=== PATIENT | male | born 1965 | race Two or more races ===

== ENCOUNTER 2017-06-04 06:57 | Inpatient (IN) | payer MEDICAID ==
[~2017-06-04] VITALS: Ht 160 cm; Wt 68.0 kg
[2017-06-04 07:43] LABS: BASOPHIL % 0.6 % (0-2); PLATELET COUNT 393 x10^3mcL (130-400); RED CELL DISTRIBUTION WIDTH 13.5 % (11.5-14.5)
[2017-06-04 07:56] LABS: CALCIUM 8.3 mg/dL (8.5-10.1); CARBON DIOXIDE 28.3 mmol/L (21-32); CHLORIDE SERUM 103 mmol/L (98-107); CREATININE SERUM 0.7 mg/dL (0.7-1.3); GFR1 > 60 mL/min; GLUCOSE SERUM 94 mg/dL (74-106); SODIUM SERUM 137 mmol/L (136-145)
[2017-06-04 08:01] LABS: ALKALINE PHOSPHATASE 126 U/L (46-116); ALT/SGPT 67 U/L (16-63); BILIRUBIN TOTAL 0.85 mg/dL (0.20-1.00); TOTAL PROTEIN, SERUM 7.5 g/dL (6.4-8.2)
[2017-06-04 08:03] LABS: ALBUMIN 2.8 g/dL (3.4-5.0)
[2017-06-04 08:15] LABS: AST/SGOT 58 U/L (15-37)
[2017-06-04 09:40] LABS: MAGNESIUM 1.9 mg/dL (1.8-2.4); PHOSPHOROUS 3.4 mg/dL (2.5-4.9)
[2017-06-04 09:46] LABS: CHOLESTEROL/HDL RATIO 1.8
[2017-06-04 10:02] LABS: T3 TOTAL 1.25 ng/mL
[2017-06-04 10:06] LABS: FREE T4 1.22 ng/dL (0.76-1.46); FREE THYROXINE INDEX 3.3 ug/dL (1.4-4.5); T4(THYROXINE) 10.4 ug/dL (4.7-13.3)
[2017-06-04 11:54] VITALS: BP 137/94
[2017-06-04 12:19] LABS: microscopic required? NO
[2017-06-04 12:32] LABS: UA SPECIFIC GRAVITY 1.015 (1.005-1.035); urine erythrocyte NEGATIVE (NEGATIVE)
[2017-06-04 12:45] LABS: AMPHETAMINE QUAL UR POSITIVE (NEG <=1000)
[2017-06-04 13:03] VITALS: BP 129/81
[2017-06-04 16:38] VITALS: BP 110/65
[2017-06-04 21:24] VITALS: BP 118/86
[2017-06-05 07:12] LABS: BASOPHIL % 0.2 % (0-2); PLATELET COUNT 342 x10^3mcL (130-400); RED CELL DISTRIBUTION WIDTH 13.4 % (11.5-14.5)
[2017-06-05 10:33] LABS: CARBON DIOXIDE 29.1 mmol/L (21-32); CHLORIDE SERUM 104 mmol/L (98-107); CREATININE SERUM 0.8 mg/dL (0.7-1.3); GFR1 > 60 mL/min; GLUCOSE SERUM 83 mg/dL (74-106); MAGNESIUM 2.1 mg/dL (1.8-2.4); PHOSPHOROUS 3.8 mg/dL (2.5-4.9); POTASSIUM SERUM 3.9 mmol/L (3.5-5.1); SODIUM SERUM 138 mmol/L (136-145)
[2017-06-05 13:05] VITALS: BP 91/54
[2017-06-05 17:11] VITALS: BP 124/80; BP 91/54
[2017-06-05 21:50] VITALS: BP 105/62
[2017-06-06 05:29] VITALS: BP 120/69
[2017-06-06 07:58] LABS: CALCIUM 8.7 mg/dL (8.5-10.1); CARBON DIOXIDE 27.2 mmol/L (21-32); CHLORIDE SERUM 104 mmol/L (98-107); CREATININE SERUM 0.9 mg/dL (0.7-1.3); GFR1 > 60 mL/min; GLUCOSE SERUM 121 mg/dL (74-106); MAGNESIUM 2.1 mg/dL (1.8-2.4); PHOSPHOROUS 5.2 mg/dL (2.5-4.9); POTASSIUM SERUM 3.9 mmol/L (3.5-5.1); SODIUM SERUM 139 mmol/L (136-145)
[2017-06-06 09:01] LABS: RED CELL DISTRIBUTION WIDTH 13.5 % (11.5-14.5)
[2017-06-06 09:02] LABS: PLATELET COUNT 422 x10^3mcL (130-400)
[2017-06-06 14:59] VITALS: BP 120/73
[2017-06-07 06:07] LABS: BASOPHIL % 0.8 % (0-2); RED CELL DISTRIBUTION WIDTH 13.2 % (11.5-14.5)
[2017-06-07 06:29] LABS: CALCIUM 8.2 mg/dL (8.5-10.1); CARBON DIOXIDE 26.6 mmol/L (21-32); CHLORIDE SERUM 105 mmol/L (98-107); CREATININE SERUM 0.9 mg/dL (0.7-1.3); GFR1 > 60 mL/min; GLUCOSE SERUM 105 mg/dL (74-106); PHOSPHOROUS 4.3 mg/dL (2.5-4.9); POTASSIUM SERUM 4.2 mmol/L (3.5-5.1); SODIUM SERUM 138 mmol/L (136-145)
[2017-06-07 06:36] LABS: PLATELET COUNT 418 x10^3mcL (130-400)
== END 2017-06-07 09:10 | disposition left against medical advice (07) | DRG 383 ==
LOC: ED → DU 08:50 → MU 08:50 → DU 09:40 → MU 06-06 10:41
PROVIDERS: Emergency Medicine; Family Medicine Sports Medicine; Neuromusculoskeletal Medicine, Sports Medicine; ADMIT Family Medicine
PROC: 0J9F00Z Drainage of Left Upper Arm Subcutaneous Tissue and Fascia with Drainage Device, Open Approach (ICD-10-PCS; principal; 2017-06-06 13:00)
DX: L02.414 Cutaneous abscess of left upper limb (principal); E43 Unspecified severe protein-calorie malnutrition; G92 Toxic encephalopathy; K72.90 Hepatic failure, unspecified without coma; F33.1 Major depressive disorder, recurrent, moderate; F11.20 Opioid dependence, uncomplicated; E83.51 Hypocalcemia; G25.81 Restless legs syndrome; R74.0 Nonspecific elevation of levels of transaminase and lactic acid dehydrogenase [LDH]; D64.9 Anemia, unspecified; E83.39 Other disorders of phosphorus metabolism; Z59.0 Homelessness; Z98.84 Bariatric surgery status; Z68.26 Body mass index [BMI] 26.0-26.9, adult; F17.210 Nicotine dependence, cigarettes, uncomplicated; Z91.19 Patient's noncompliance with other medical treatment and regimen
CPT/HCPCS: 83880; 84439; G0480; J1200; J1630; J1885; J2001; J2060; J2175; J2270; J2405; J2543; J3010; J3490; J7030; Q0092

== ENCOUNTER 2018-08-03 11:02 | Emergency (ER) | payer MEDICAID ==
[~2018-08-03] VITALS: Ht 162.6 cm; Wt 69.4 kg
[2018-08-03 11:16] VITALS: Ht 162.6 cm; Wt 69.4 kg
[2018-08-03 11:53] LABS: BASOPHIL % 0.5 % (0-2); PLATELET COUNT 398 x10^3mcL (130-400)
[2018-08-03 11:55] LABS: RED CELL DISTRIBUTION WIDTH 15.3 % (11.5-14.5)
[2018-08-03 12:03] LABS: CALCIUM 8.1 mg/dL (8.5-10.1); CARBON DIOXIDE 28.4 mmol/L (21-32); CHLORIDE SERUM 104 mmol/L (98-107); CREATININE SERUM 0.8 mg/dL (0.7-1.3); GFR1 > 60 mL/min; GLUCOSE SERUM 76 mg/dL (74-106); POTASSIUM SERUM 3.7 mmol/L (3.5-5.1); SODIUM SERUM 139 mmol/L (136-145)
[2018-08-03 12:09] LABS: ALKALINE PHOSPHATASE 144 U/L (46-116); ALT/SGPT 69 U/L (16-63); AST/SGOT 54 U/L (15-37); BILIRUBIN TOTAL 0.34 mg/dL (0.20-1.00); TOTAL PROTEIN, SERUM 7.1 g/dL (6.4-8.2)
[2018-08-03 12:10] LABS: ALBUMIN 2.8 g/dL (3.4-5.0)
[2018-08-03 14:05] LABS: microscopic required? YES; urine erythrocyte NEGATIVE (NEGATIVE)
[2018-08-03 14:10] VITALS: BP 144/83
[2018-08-03 14:54] LABS: AMPHETAMINE QUAL UR NONE DETECTED (See below)
== END 2018-08-03 15:25 | disposition home or self-care (01) ==
LOC: ED 11:02
PROVIDERS: Emergency Medicine
DX: F19.20 Other psychoactive substance dependence, uncomplicated (principal); G25.81 Restless legs syndrome; I10 Essential (primary) hypertension; Z88.1 Allergy status to other antibiotic agents; Z88.2 Allergy status to sulfonamides; Z91.013 Allergy to seafood
CPT/HCPCS: 82962; G0480; J1200; J7030; Q0092

== ENCOUNTER → 2020-01-18 | Emergency (ER) | payer MEDICAID ==
[~2020-01-18] VITALS: Ht 165.1 cm; Wt 65.5 kg
[2020-01-19 04:35] VITALS: BP 111/55
== END ==
LOC: ED 23:45
DX: L02.414 Cutaneous abscess of left upper limb (principal); F11.20 Opioid dependence, uncomplicated; I10 Essential (primary) hypertension; Z88.2 Allergy status to sulfonamides; Z88.1 Allergy status to other antibiotic agents; Z91.013 Allergy to seafood
CPT/HCPCS: J2001; J3490